=== PATIENT | female | born 1955 | race Caucasian/White ===

== ENCOUNTER → 2016-12-27 14:03 | Outpatient (CLI) | payer BC | END | disposition home or self-care (01) | LOC: D.MAMMO 14:03 | DX: Z12.31 Encounter for screening mammogram for malignant neoplasm of breast (principal) ==

== ENCOUNTER → 2018-06-26 16:45 | Outpatient (CLI) | payer BC | END | disposition home or self-care (01) | LOC: D.MAMMO 10:00 | PROVIDERS: ATTEND Emergency Medicine | DX: Z12.31 Encounter for screening mammogram for malignant neoplasm of breast (principal) ==

== ENCOUNTER → 2018-07-05 16:48 | Outpatient (CLI) | payer BC | END | disposition home or self-care (01) | LOC: D.MAMMO 10:00 | PROVIDERS: ATTEND Emergency Medicine | DX: N63.12 Unspecified lump in the right breast, upper inner quadrant (principal) ==